=== PATIENT | male | born 1990 | race Two or more races ===

== ENCOUNTER 2024-08-12 20:15 | Emergency (ER) | payer OTHER ==
[~2024-08-12] VITALS: Ht 182.9 cm; Wt 81.6 kg
[2024-08-12 20:40] VITALS: BP 149/87; TEMP 98.1; O2SAT 98
== END 2024-08-13 06:01 | disposition home or self-care (01) ==
LOC: ER 20:19
DX: M79.641 Pain in right hand (principal); W20.8XXA Other cause of strike by thrown, projected or falling object, initial encounter; Y93.89 Activity, other specified; Y92.89 Other specified places as the place of occurrence of the external cause; Y99.8 Other external cause status
CPT/HCPCS: 73130-TC